=== PATIENT | female | born 1975 | race Caucasian/White ===

== ENCOUNTER → 2016-12-31 | Outpatient (CLI) | payer OTHER | LOC: COL.RAD 12:21 | DX: M75.101 Unspecified rotator cuff tear or rupture of right shoulder, not specified as traumatic (principal); M19.011 Primary osteoarthritis, right shoulder; M75.51 Bursitis of right shoulder; M75.21 Bicipital tendinitis, right shoulder; X58.XXXA Exposure to other specified factors, initial encounter ==

== ENCOUNTER → 2017-06-26 | Outpatient (CLI) | payer OTHER | LOC: COL.RAD 12:48 | DX: M25.511 Pain in right shoulder (principal) | CPT/HCPCS: J3301; Q9967 ==

== ENCOUNTER → 2017-08-20 | Outpatient (CLI) | payer BC | LOC: MC.RAD 14:40 | DX: Z12.31 Encounter for screening mammogram for malignant neoplasm of breast (principal) ==

== ENCOUNTER 2019-12-29 21:17 | Emergency (ER) | payer BC ==
[~2019-12-29] VITALS: Ht 157.5 cm; Wt 75.0 kg
[2019-12-29] MEDS ORDERED: MACROBID 1100 MG/CAP PO (21:23)
[2019-12-29] MEDS ORDERED: CEPHALEXIN500 M1 PO (21:23)
[2019-12-29] MEDS ORDERED: YAZ 28 3 MG-0.01 TAB PO (21:24)
[2019-12-29] MEDS ORDERED: SYNTHROID0.075 MG/T PO (21:24)
[2019-12-29] MEDS ORDERED: ATARAX50 MG PO (21:24)
[2019-12-29 21:37] LABS: COLLECTION METHOD CLEAN CATCH
[2019-12-29 21:44] LABS: PH 6 (5-8); SQUAMOUS EPITHELIAL 0-2 /hpf; URINE APPEARANCE Clear; URINE BACTERIA None Seen /hpf; URINE BILIRUBIN Negative (NEGATIVE); URINE BLOOD 2+ (NEGATIVE); URINE COLOR Yellow; URINE GLUCOSE Negative (NEGATIVE); URINE KETONE Negative (NEGATIVE); URINE LEUKOCYTE ESTERASE Negative (NEGATIVE); URINE NITRATE Negative (NEGATIVE); URINE PROTEIN(semi-quant) Negative (NEGATIVE); URINE RBC 0-2 /hpf; URINE UROBILINOGEN Negative (NEGATIVE)
[2019-12-29 21:50] LABS: BASO % 0.2 % (0.0-2.0); EOS # 0.2 (0.0-0.7); EOS % 1.4 % (0-4.0); GRAN # 10.5 (1.4-6.5); GRAN % 71.7 % (42.2-75.2); HEMOGLOBIN 11.5 g/dl (12.5-16.0); LYMPH # 2.8 (1.2-3.4); MEAN CELL VOLUME 83 fl (80.0-100.0); MEAN CORPUSCULAR HEMOGLOBIN 28 pg (27.0-31.0); MEAN CORPUSCULAR HGB CONC 34 g/dl (33.0-37.0); MONO # 1.1 (0.1-0.6); MONO % 7.2 % (1.7-9.3); PLATELET COUNT 304 K/mm3 (130-400); RED BLOOD COUNT 4.13 M/mm3 (4.10-5.30); REDCELL DISTRIBUTION WIDTH-CV 13.2 % (11.5-14.5)
[2019-12-29 21:51] LABS: HEMATOCRIT 34.3 % (37.0-47.0)
[2019-12-29 22:02] LABS: ALBUMIN 4.3 gm/dL (3.5-5.0); BILIRUBIN,TOTAL 0.3 mg/dL (0.0-1.0); C-REACTIVE PROTEIN 4.9 mg/dL (0.0-0.9); CALCIUM 9.1 mg/dL (8.4-10.2); CREATININE, serum 0.74 (0.52-1.25); POTASSIUM 3.5 mmol/L (3.4-5.0); TOTAL PROTEIN 7.9 gm/dL (6.4-8.2)
[2019-12-30] MEDS ORDERED: DOXYCYCLINE 10100 MG PO (00:25)
[2019-12-30] MEDS ORDERED: NORCO 325 MG-51 TAB PO (00:25)
[2019-12-30] MEDS ORDERED: FLAGYL500 MG PO (00:25)
[2019-12-30 00:34] VITALS: BP 110/85; PULSE 98; TEMP 97.8
== END 2019-12-30 00:38 | disposition home or self-care (01) ==
LOC: COL.ER 21:17
PROVIDERS: Nurse Practitioner
DX: N73.9 Female pelvic inflammatory disease, unspecified (principal); Z90.89 Acquired absence of other organs; Z98.51 Tubal ligation status
CPT/HCPCS: A4216; J0696; J1170; J1885; J2405; J7030; Q9967

== ENCOUNTER 2020-08-03 10:19 | Emergency (ER) | payer BC ==
[~2020-08-03] VITALS: Ht 157.5 cm; Wt 72.7 kg
[~2020-08-03 10:19] MED LIST: ATARAX50 MG PO; CEPHALEXIN500 M1 PO; DOXYCYCLINE 10100 MG PO; FLAGYL500 MG PO; MACROBID 1100 MG/CAP PO; NORCO 325 MG-51 TAB PO; SYNTHROID0.075 MG/T PO; YAZ 28 3 MG-0.01 TAB PO
[2020-08-03 10:25] VITALS: TEMP 98.2
[2020-08-03 11:11] LABS: BASO % 0.5 % (0.0-2.0); EOS # 0.1 (0.0-0.7); EOS % 0.8 % (0-4.0); GRAN % 63.4 % (42.2-75.2); HEMOGLOBIN 11.8 g/dl (12.5-16.0); LYMPH # 2.3 (1.2-3.4); LYMPH % 28.8 % (20.0-51.0); MEAN CELL VOLUME 84 fl (80.0-100.0); MEAN CORPUSCULAR HEMOGLOBIN 28 pg (27.0-31.0); MEAN CORPUSCULAR HGB CONC 34 g/dl (33.0-37.0); MEAN PLATELET VOLUME 10.3 fl (7.4-10.4); MONO # 0.5 (0.1-0.6); MONO % 6.1 % (1.7-9.3); PLATELET COUNT 322 K/mm3 (130-400); RED BLOOD COUNT 4.17 M/mm3 (4.10-5.30); REDCELL DISTRIBUTION WIDTH-CV 13.7 % (11.5-14.5)
[2020-08-03 11:12] LABS: INR 1.1 (0.8-3.0); PROTHROMBIN TIME 11.8 SECONDS (9.7-12.8)
[2020-08-03 11:14] LABS: HEMATOCRIT 35.2 % (37.0-47.0)
[2020-08-03 11:15] LABS: ALANINE AMINOTRANSFERASE 16 U/L (4-34); ALBUMIN 4.4 gm/dL (3.5-5.0); ALKALINE PHOSPHATASE 54 U/L (50-136); ANION GAP 8 mmol/L (7-16); AST,SGOT 21 U/L (15-37); BILIRUBIN,TOTAL 0.3 mg/dL (0.0-1.0); BLOOD UREA NITROGEN 10 mg/dL (7-17); CALCIUM 9.1 mg/dL (8.4-10.2); CARBON DIOXIDE 25 mmol/L (22-30); CHLORIDE 106 mmol/L (98-107); CREATININE, serum 0.75 (0.52-1.25); GLUCOSE 100 mg/dL (74-106); PARTIAL THROMBOPLASTIN TIME 27.3 SECONDS (26.0-37.0); POTASSIUM 3.8 mmol/L (3.4-5.0); SODIUM 139 mmol/L (137-145); TOTAL PROTEIN 7.9 gm/dL (6.4-8.2)
[2020-08-03 11:27] LABS: TROPONIN-I < 0.012 ng/mL (0.000-0.035)
[2020-08-03] MEDS ORDERED: BONINE25 MG PO (11:52)
[2020-08-03 12:11] VITALS: BP 127/78; PULSE 69
== END 2020-08-03 12:13 | disposition home or self-care (01) ==
LOC: COL.ER 10:19
PROVIDERS: Family Medicine
DX: R42 Dizziness and giddiness (principal)
CPT/HCPCS: J7030

== ENCOUNTER → 2020-11-26 | Outpatient (CLI) | payer OTHER ==
[~2020-11-26] MED LIST changes: +BONINE25 MG PO
== END ==
LOC: COL.RAD
DX: M51.36 Other intervertebral disc degeneration, lumbar region (principal); M48.061 Spinal stenosis, lumbar region without neurogenic claudication; M47.816 Spondylosis without myelopathy or radiculopathy, lumbar region; G95.0 Syringomyelia and syringobulbia; M54.42 Lumbago with sciatica, left side

== ENCOUNTER 2022-07-22 19:29 | Emergency (ER) | payer BC ==
[~2022-07-22] VITALS: Ht 157.5 cm; Wt 75.0 kg
[2022-07-22 19:41] VITALS: TEMP 97.8
[2022-07-22 21:41] VITALS: BP 148/80; PULSE 82
== END 2022-07-22 21:50 | disposition home or self-care (01) ==
LOC: COL.ER 19:29
DX: S09.90XA Unspecified injury of head, initial encounter (principal); Z28.311 Partially vaccinated for COVID-19; W20.8XXA Other cause of strike by thrown, projected or falling object, initial encounter

== ENCOUNTER → 2023-08-21 | Outpatient (CLI) | payer OTHER | LOC: CANPRECLI → MC.RAD 06-11 09:00 | DX: Z12.31 Encounter for screening mammogram for malignant neoplasm of breast (principal); N63.10 Unspecified lump in the right breast, unspecified quadrant ==